=== PATIENT | female | born 1985 | race Caucasian/White ===

== ENCOUNTER 2017-05-16 12:19 | Emergency (ER) | payer MEDICAID ==
[~2017-05-16] VITALS: Ht 162.6 cm; Wt 63.0 kg
[2017-05-16 16:31] LABS: CLARITY URINE CLEAR (CLEAR); COLOR URINE YELLOW (YELLOW); GLUCOSE URINE NEGATIVE (NEGATIVE); KETONES URINE NEGATIVE (NEGATIVE); LEUKOCYTE ESTERASE URINE 2+ (NEGATIVE); NITRITE URINE NEGATIVE (NEGATIVE); OCCULT BLOOD URINE 1+ (NEGATIVE); PROTEIN URINE NEGATIVE (NEGATIVE); SPECIFIC GRAVITY URINE 1.007 (1.005-1.030); UROBILINOGEN URINE 0.2 E.U./dL (0.2-1.0)
[2017-05-16 17:20] VITALS: BP 121/67
== END 2017-05-16 18:45 | disposition home or self-care (01) ==
LOC: ER 16:13
DX: N39.0 Urinary tract infection, site not specified (principal); R10.2 Pelvic and perineal pain
CPT/HCPCS: 81001; 81025; 99283

== ENCOUNTER 2018-09-12 12:29 | Emergency (ER) | payer MEDICAID ==
[~2018-09-12] VITALS: Ht 152.4 cm; Wt 73.0 kg
[2018-09-12 12:34] VITALS: BP 145/86
== END 2018-09-12 19:30 | disposition left against medical advice (07) ==
LOC: ER 12:29
DX: Z53.21 Procedure and treatment not carried out due to patient leaving prior to being seen by health care provider (principal)
CPT/HCPCS: 93005

== ENCOUNTER 2023-10-29 16:28 | Emergency (ER) | payer MEDICAID ==
[~2023-10-29] VITALS: Ht 162.6 cm; Wt 70.0 kg
[2023-10-29 16:34] VITALS: BP 142/76; PULSE 98; RESP 24; O2SAT 100
== END 2023-10-29 16:53 | disposition left against medical advice (07) ==
LOC: ER 16:44
DX: F41.9 Anxiety disorder, unspecified (principal); Z53.21 Procedure and treatment not carried out due to patient leaving prior to being seen by health care provider; Z98.890 Other specified postprocedural states
CPT/HCPCS: 99283